=== PATIENT | male | born 1965 | race Two or more races ===

== ENCOUNTER 2024-06-30 12:30 | Day surgery (SDC) | payer BC, SELFPAY ==
[2024-06-30] VITALS (10 sets, daily range): BP systolic 116–152; BP diastolic 61–97; PULSE 67–74; RESP 11–19; TEMP 36.2–36.6; O2SAT 94–98; BMI 37.6
[2024-06-30] MEDS: SODIUM CHLORIDE 0.9% 500 ML 500 ML 20 ML IV (14:39)
[2024-06-30] MEDS: DiphenhydrAMINE INJ 50 MG/ML VIAL 25 MG IV (14:42)
[2024-06-30] MEDS: fentaNYL CIT INJ 50 mCg/ML AMP 2ML (ASD USE ONLY) IV (14:44)
[2024-06-30] MEDS: ONDANSETRON INJ 2 MG/ML INJ 2 ML 4 MG IV (14:44)
[2024-06-30] MEDS: MIDAZOLAM INJ 1 MG/ML VIAL 2 ML (ASD USE ONLY) 2 MG IV (14:44)
--- NOTE | 2024-06-30 15:58 | SUR.PHASEII ---
1525 Pt awake and alert. Denies pain or N/V. Abd remains round, yet soft upon palp. Does not want anything to drink at this time. 1548 Pt assessment unchanged. No complaints. Amb with steady gait. Able to dress self. at bedside. DC instructions given. Both state understanding. Pt meets dc criteria-to home.
== END 2024-06-30 15:48 | disposition home or self-care (01) ==
PROVIDERS: PCP Internal Medicine Hospice and Palliative Medicine; Referring Provider Specialist; Visit Provider Specialist
PROC: 0DBE8ZX Excision of Large Intestine, Via Natural or Artificial Opening Endoscopic, Diagnostic (ICD-10-PCS; CPT 45380; principal; 2024-06-30 14:30)
DX: K52.9 Noninfective gastroenteritis and colitis, unspecified (principal); K63.89 Other specified diseases of intestine; K62.89 Other specified diseases of anus and rectum; K64.9 Unspecified hemorrhoids; K57.31 Diverticulosis of large intestine without perforation or abscess with bleeding; D12.9 Benign neoplasm of anus and anal canal
CPT/HCPCS: 45385; 45380; A4649; J1200; J2250; J2405; J3010; J7040